=== PATIENT | male | born 1940 | race Caucasian/White ===

== ENCOUNTER → 2018-06-11 | Outpatient (CLI) | payer MEDICARE, BC ==
[2018-06-11 10:49] LABS: LDL CHOLESTEROL 68 mg/dl
== END ==
LOC: LAB 10:11
PROVIDERS: ATTEND Psychologist Clinical
DX: E78.00 Pure hypercholesterolemia, unspecified (principal); N40.2 Nodular prostate without lower urinary tract symptoms
CPT/HCPCS: 36415; 82040; 82247; 82310; 82374; 82435; 82465; 82565; 82947; 83718; 84075; 84132; 84153; 84155; 84295; 84450; 84460; 84478; 84520